=== PATIENT | male | born 1960 | race Caucasian/White ===

== ENCOUNTER → 2019-09-13 06:38 | Outpatient (CLI) | payer MEDICARE, MEDICAID, SELFPAY ==
--- NOTE | 2019-09-13 07:26 | NM_ITS ---
APPROVED REPORT Exam: Nuclear Stress Test Indication: Chest pain, CAD, HTN, High cholesterol, Tobacco use Patient Location: Outpatient Stress Tech: Lexis [place] Tech:Romy Farr BHARATHOmid RT(R)(N) Ht: 6 ft 3 in Wt: 259 lbs HR: 94 bpm BP: 112/67 mmHg BSA: 2.45 m2 BMI: 32.3 History: Chest pain, CAD, HTN, High cholesterol, Tobacco use Procedure: Patient received a 0.4 mg of intravenous Lexiscan, resting heart rate 94 bpm, resting blood pressure 112/67 mmHg, with Lexiscan maximum heart rate achived was 105 bpm which is Less than 85 % of the maximum predicted heart rate and blood pressure was 119/66 mmHg. With Lexiscan, patient denied any complaint of chest pain. Electrocardiogram Resting electrocardiogram showed sinus rhythm, with Lexiscan there is less than 1.[address] segment depression noted from the baseline EKG. The EKG portion of the Lexiscan Myoview is nondiagnostic. Cardiac Stress and Resting SPECT Images: Cardiac Stress and Resting SPECT images were obtained using technetium 99m Myoview 31.6 mCi stress and 10.55 mCi at rest. Gated SPECT with analysis of segmental wall motion and calculation of the ejection fraction also done. Cardiac stress and resting SPECT images show decreases activity in the anterior and apical wall which improves on the resting images suggestive of reversible ischemia, computer derived ejection fraction is 59% with no regional wall motion abnormality, right ventricle is normal size and contractility. Conclusion: 1. The EKG portion of the Lexiscan Myoview is nondiagnostic. 2. Scintigraphic evidence of reversible ischemia involving the anterior and apical wall. Computer derived ejection fraction 59% with no regional wall motion abnormality, right ventricle is normal size and contractility. 3. Abnormal Lexiscan Myoview study. Electronically signed by : Rosas Montgomery, 09/20/2019 12:07:58
--- NOTE | 2019-09-13 09:30 | US_ITS ---
PROCEDURE: US AORTA CLINICAL INDICATION: AAA COMPARISON: No exams were available for comparison FINDINGS: Aorta shows general echogenic irregularity of the wall suggesting plaque formation. Upper abdominal aorta shows a maximal transverse diameter of 2.2 centimeters. Mid to lower abdominal aorta shows maximal transverse diameter of 4.4 centimeters. Maximal diameter of the proximal right common iliac artery is 1.1 centimeters. Proximal left common iliac artery is unremarkable. IMPRESSION: Atherosclerotic vascular disease. 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 Dictated by: Krish Gutierrez 09/13/2019 11:10 Electronically signed by Krish Gutierrez in [facility] 09/13/2019 11:10
--- NOTE | 2019-09-13 14:08 | CT_ITS ---
PROCEDURE: CT ANGIO CHEST CLINCIAL INDICATION: chest pain COMPARISON: No exams were available for comparison TECHNIQUE: IV Contrast: 70ML OPTIRAY 350 Axial images obtained with sagittal and coronal reformats. All CT scans at the facility use one or more dose reduction, viz: automated exposure control, ma/kV adjustment per patient size (including targeted exams where dose is matched to indication, i.e. head), or iterative reconstruction technique. FINDINGS: PULMONARY ARTERIES: No pulmonary embolus evident. AORTA: Aorta is normal. There is a small left vertebral artery arising from the aortic arch. This is developmental. LUNGS: Lungs are hyperexpanded and there are areas of blood formation in both upper lobes greater in the right upper lobe with some hazy ground-glass densities. The remainder of the lung echeverria are clear. PLEURAL SPACES: No significant effusion. No evidence of pneumothorax. HEART: Heart size is normal. There is a midline anterior pericardial soft tissue density measuring 12 millimeters in length and could be some focal pericardial thickening. There is no definite pericardial effusion. MEDIASTINAL AND HILAR STRUCTURES: No mediastinal or hilar mass evident. No dominant adenopathy BONY STRUCTURES: No acute bony abnormalities apparent. LYMPH NODES: No enlarged lymph nodes evident. UPPER ABDOMEN: Unremarkable. IMPRESSION: No evidence of pulmonary embolism. Changes of pulmonary emphysema greater in the right upper lobe. Ground-glass densities are nonspecific with many potential etiologies although could be areas of fibrosis considering insular findings. Dictated by: Krish Gutierrez 09/13/2019 16:42 Electronically signed by Krish Gutierrez in [facility] 09/13/2019 16:42
--- NOTE | 2019-09-13 14:39 | HMH.ITSHM ---
Current Home Medications as stated by this patient Dajuan Guallpa or claim service representative. []BRILINTA SERTARLINE CARVEDILOL NITRO ASA ATORVASTATIN LEVOTHYROXINE PANTOPRAZOLE
--- NOTE | 2019-09-13 14:42 | CA_ITS ---
APPROVED REPORT Exam: Pharmacologic Technologist: sylvia ortiz, Ht: 6 ft 1 in Wt: 259 lbs BSA: 2.40 m2 HR: 94 bpm Indications: CP, CAD Medical History Medications: Levothyroxine,,,,, Asa,,,,, Hydrocodone,,,,, Pantoprazole,,,,, Carvedilol,,,,, Lipitor,,,,, Sertraline,,,,, TicaAGRELOR,,,,, Cardiac Risk Factors: HTN, Hyperlipidemia Stress Test Details Test: LEXISCAN HR Resting HR: 83 bpm Max Heart Rate (APMHR): 162 bpm Max HR Achieved: 106 bpm Target HR (85% APMHR): 137 bpm % of APMHR: 65 Recovery HR: 86 bpm BP Resting BP: 112/67 mmHg Max BP: 119/66 mmHg Recovery BP: 101.0/74.0 mmHg ECG Resting ECG: NSR Clinical Exercise duration: 04:01 min Highest Stage Achieved: Stress ECG Conclusion Patient c/o SOA, Cough, but no CP.. No arrhythmia or ectopy. No significant ST changes. Unremarkable Lexiscan stress. Images reported seperately. Electronically signed by : Rosas Montgomery, 09/17/2019 15:20:20
[2019-09-13 14:50] LABS: Blood Urea Nitrogen 16 mg/dL (7-18); Creatinine,Serum 1.09 mg/dL (0.70-1.30); Estimated Glomerular Filt Rate 69 ml/min (>60); GFR (African American) 84 ML/MIN (>60)
== END ==
PROVIDERS: PCP Family Medicine; Visit Provider Nurse Practitioner Family
DX: E78.5 Hyperlipidemia, unspecified (principal); I10 Essential (primary) hypertension; I20.9 Angina pectoris, unspecified; I71.4 Abdominal aortic aneurysm, without rupture; R06.09 Other forms of dyspnea; F17.200 Nicotine dependence, unspecified, uncomplicated
CPT/HCPCS: 71275; 76770; 78452; 82565; 84520; 93017; 93306; A9502; J2785; Q9967

== ENCOUNTER → 2020-03-18 07:44 | Outpatient (CLI) | payer MEDICARE, OTHER, SELFPAY ==
--- NOTE | 2020-03-18 07:44 | US_ITS ---
PROCEDURE: US ABD. AORTA SCREENING CLINICAL INDICATION: aaa Follow-up aortic aneurysm COMPARISON: US AORTA from 09/13/2019 FINDINGS: There is fusiform dilatation of the abdominal aorta measuring 3.8 cm AP and 4.3 cm transverse which appear similar compared to the previous exam. Proximal common iliacs are unremarkable. IMPRESSION: No significant change in the ultrasound appearance of the abdominal aortic aneurysm at 3.8 x 4.3 cm Dictated by: Gonzalo Alvarado MD 03/18/2020 09:15 Electronically signed by Gonzalo Alvarado MD in [facility] 03/18/2020 09:15
== END ==
PROVIDERS: PCP Family Medicine; Visit Provider Urology
DX: E78.5 Hyperlipidemia, unspecified (principal); F17.200 Nicotine dependence, unspecified, uncomplicated; I10 Essential (primary) hypertension; I20.9 Angina pectoris, unspecified; I71.4 Abdominal aortic aneurysm, without rupture; R06.00 Dyspnea, unspecified
CPT/HCPCS: 76705